=== PATIENT | female | born 1940 | race Asian ===

== ENCOUNTER 2022-06-18 16:40 | Inpatient (IN) | payer MEDICARE, OTHER ==
[~2022-06-18] VITALS: Ht 152.4 cm; Wt 45.4 kg
[2022-06-18] MEDS ORDERED: OLANZAPINE 10 MG VIAL IM ONE ×2 (17:00→17:07)
[2022-06-18 17:01] LABS: HEMATOCRIT 33.8 % (31.2-41.9); MEAN CORPUSCULAR HEMOGLOBIN 31.3 uug (24.7-32.8); MEAN CORPUSCULAR VOLUME 93.9 fL (75.5-95.3); PLATELET COUNT (AUTO) 259 K/uL (179-408)
--- NOTE | 2022-06-18 17:18 | NUR ---
PT IS IN ROOM #2B. DR VÁZQUEZ EVALUATED THE PT.
[2022-06-18] MEDS ORDERED: ACET-2154 PO (17:23)
[2022-06-18] MEDS ORDERED: NA P133E RC (17:23)
[2022-06-18] MEDS ORDERED: MAGN400O6 PO (17:23)
[2022-06-18] MEDS ORDERED: ACET-2605 PO (17:23)
[2022-06-18] MEDS ORDERED: CHOL-9 PO (17:23)
[2022-06-18] MEDS ORDERED: BISA10SU61 RC (17:23)
[2022-06-18] MEDS ORDERED: ASCO500P18 PO (17:23)
[2022-06-18 17:31] LABS: ALANINE AMINOTRANSFERASE 15 U/L (14-59); ALKALINE PHOSPHATASE 84 U/L (50-136); ASPARTATE AMINOTRANSFERASE 10 U/L (15-37); BILIRUBIN,DIRECT 0.1 mg/dL (0.0-0.2); BILIRUBIN,TOTAL 0.4 mg/dL (0.2-1.0); CARBON DIOXIDE 25 mmol/L (21-32); CHLORIDE 104 mmol/L (98-107); CREATININE 0.7 mg/dL (0.6-1.3); GLUCOSE 131 mg/dL (74-106); POTASSIUM 3.8 mmol/L (3.5-5.1); TOTAL PROTEIN, SERUM 7.2 g/dL (6.4-8.2); UREA NITROGEN, BLOOD 28 mg/dL (7-18)
[2022-06-18 17:35] LABS: ETHANOL < 3 MG/DL (0-0)
[2022-06-18 17:39] LABS: ACETAMINOPHEN < 2.0 ug/mL (10-30); THYROID STIMULATING HORMONE 1.336 mIU/mL (0.358-3.740)
[2022-06-18 17:58] LABS: *AMPHETAMINE, URINE NEGATIVE (NEGATIVE); *CANNABINOID, URINE NEGATIVE (NEGATIVE); *COCCAINE, URINE NEGATIVE (NEGATIVE); *PHENCYCLIDINE SCREEN,URINE NEGATIVE (NEGATIVE)
[2022-06-18 18:03] LABS: *BILIRUBIN,URIN NEGATIVE (NEGATIVE); *CLARITY,URINE CLEAR (CLEAR); *COLOR,URINE YELLOW (YELLOW); *KETONES,URINE NEGATIVE (NEGATIVE); *UROBILINOGEN,URINE 0.2 E.U./dl (NORMAL); LEUKOCYTE ESTERASE ,URINE NEGATIVE (NEGATIVE); NITRITE, URINE NEGATIVE (NEGATIVE); PH,URINE 5.5 (5.0-8.0); UGLUCOSE NEGATIVE (NEGATIVE)
[2022-06-18 18:19] LABS: *BLOOD, URINE TRACE (NEGATIVE)
[2022-06-18] MEDS ORDERED: diphenhydrAMINE 50 MG/1 ML VIAL IM ONE (18:45)
[2022-06-18] MEDS ORDERED: HALOPERIDOL LACTATE 5 MG/1 ML VIAL IM ONE (18:45)
[2022-06-18] MEDS ORDERED: diphenhydrAMINE 50 MG/1 ML VIAL ONE (18:50)
[2022-06-18] MEDS ORDERED: HALOPERIDOL LACTATE 5 MG/1 ML VIAL ONE (18:51)
[2022-06-18 19:09] LABS: RBC,URINE 0-3 /HPF (0-3); WBC,URINE 0-3 /HPF (0-3)
--- NOTE | 2022-06-18 20:55 | NUR ---
Patient medically clear per Dr. Tafoya
--- NOTE | 2022-06-18 21:00 | NUR ---
Report given to Nallely
--- NOTE | 2022-06-18 22:01 | NUR ---
Patient taken to MHU via gurney with personal belongings. Patient in stable condition, no signs of distress. Nallely MAJANO aware of patients arrival.
[2022-06-18] MEDS ORDERED: MAG HYDROX/AL HYDROX/SIMETH 30 ML LIQUID UDC PO PRN (22:30)
[2022-06-18] MEDS ORDERED: ZOLPIDEM 5 MG TABLET PO PRN (22:30)
[2022-06-18] MEDS ORDERED: MAGNESIUM HYDROXIDE 30 ML LIQUID UDC PO PRN (22:30)
[2022-06-18 22:55] VITALS: BP 133/73
--- NOTE | 2022-06-18 23:00 | NUR ---
Admission Note: Admitted a 82 year old female from [facility]. Pt is on a 5150 hold status For GD and DTO. Up on face to face evaluation, Pt was Uncooperative with physical assessment and was resistive with the staff providing care.Pt is confused and anxious. Skin Body assessment no revealed no significant skin integrity breakdown. Pt ambulates with assistance, lower extremities weakness, unsteady gait. Pt was offered brief orientation to unit rules and policies and given a copy of patient's rights handbook. Pt belongings were accounted and contrabands removed.Pt is currently free from pain or any discomfort. Emotional support provided. Fall and safety precautions implemented.
[2022-06-19 07:56] VITALS: BP 92/54
[2022-06-19] MEDS: ACETAMINOPHEN 325 MG TABLET PO PRN (13:36)
--- NOTE | 2022-06-19 17:48 | NUR ---
patient is alert and oriented x1 to her self only, constantly try to get out of bed without assisted, bed alarm on bed in low position on fall precautions . noted patient had fever 101.9 at 4pm ,Tylenol given ,Dr. Calvin notified with new order made will continue close monitoring.
[2022-06-19 18:13] VITALS: BP 93/49
[2022-06-19] MEDS ORDERED: QUETIAPINE FUMARATE 25 MG TABLET PO SCH (21:00)
[2022-06-19] MEDS: MEMANTINE HCL 5 MG TABLET PO SCH (21:04)
[2022-06-19] MEDS: DONEPEZIL 5 MG TABLET PO SCH (21:04)
[2022-06-19 21:24] VITALS: BP 95/51
[2022-06-20] MEDS: ACETAMINOPHEN 325 MG TABLET PO PRN ×3 (01:51→18:12)
[2022-06-20] MEDS: MEMANTINE HCL 5 MG TABLET PO SCH ×2 (08:26→20:39)
[2022-06-20] MEDS: ESCITALOPRAM OXALATE 10 MG TABLET PO SCH (08:27)
[2022-06-20 08:31] VITALS: BP 93/52
[2022-06-20 16:31] VITALS: BP 100/56
--- NOTE | 2022-06-20 17:45 | NUR ---
Gps/Class C Driver- Poor safety awareness, kept getting out of bed, w/ unsteady gait, speaks Yakut, safety reviewed emphasized, difficulty following directions, possible language barrier, able to say simple Salvadorean . Kept patient oob in her iglesia-chair , by the Nurses station for safety, wabbles when ambulating impulsivity with her mobility , monitored needs.
[2022-06-20] MEDS: LORAZEPAM 1 MG TABLET PO PRN (18:13)
--- NOTE | 2022-06-20 20:20 | NUR ---
PATIENT IN CATERINA CHAIR, RESTLESS, MULTIPLE EPISODE OF CLIMBING OUT OF CATERINA CHAIR, PATIENT UNSTEADY GAIT RISK FOR FALL AND INJURY, PLACE IN FRONT OF STATION. OFFERED FOOD AND WATER, CONT TO MONITOR.
[2022-06-20 20:27] VITALS: BP 92/46
[2022-06-20] MEDS: DONEPEZIL 5 MG TABLET PO SCH (20:39)
[2022-06-20] MEDS: QUETIAPINE FUMARATE 25 MG TABLET PO SCH (20:39)
--- NOTE | 2022-06-20 22:00 | NUR ---
PATIENT ASSISTED BACK TO BED, BUT KEEPS CLIMBING OUT OF BED, BED ALARM ON, TOOK PATIENT TO TOILET, GAVE WATER, OFFER FOOD BY REFUSED, PATIENT TALKING TO SELF, APPEARS RESPONDING TO STIMULI, PATIENT COOPERATIVE WITH ROUTINE MEDICATIONS, REFUSED TO TAKE ANY OTHER PRN MEDS, FREQUENT VISUAL CHECK DONE. NO COMPLAIN OF PAIN OR DISCOMFORT, KEPT CLEAN AND DRY. CONT TO MONITOR.
--- NOTE | 2022-06-21 06:30 | NUR ---
PATIENT WAS IN THE CATERINA CHAIR ASLEEP AFTER NICE SHOWER, THEN FOUND IN THE FLOOR. THE BAND RIPSAW OPERATOR REPORTED THAT PATIENT IN THE FLOOR SEATING POSITION, ASSISTED BACK TO CATERINA CHAIR, BODY CHECK WAS DONE, ABLE TO MOVE ALL FOUR EXTREMITIES, YELLING AT STAFF REFUSED TO BE ASSISTED BACK TO CATERINA CHAIR. PATIENT ALERT AWAKE, VERBALLY RESPONSIVE, NO APPARENT SIGN OF VISIBLE INJURY CONT TO MONITOR.
[2022-06-21 08:02] VITALS: BP 120/56
--- NOTE | 2022-06-21 08:23 | NUR ---
PLACE A CALL TO [facility] (SON), THE CALL WENT ON VOICE MAIL, UNABLE TO LEAVE A MESSAGE, THE MAIL BOX DOES NOT ACCEPT MESSAGES, ENDORSE TO OSMEL MAJANO,. DR ROBERTS MAKING ROUND AND NOTIFY ABOUT THE FALL, AND THE BEHAVIOR.
--- NOTE | 2022-06-21 08:31 | NUR ---
DR ROBERTS HAS NO FURTHER ORDER.
--- NOTE | 2022-06-21 08:37 | NUR ---
ENDORSE TO AM RN TO NOTIFY MD ABOUT THE FALL WHEN MD MAKE ROUNDS.
[2022-06-21] MEDS: MEMANTINE HCL 5 MG TABLET PO SCH ×2 (08:56→21:42)
[2022-06-21] MEDS: ESCITALOPRAM OXALATE 10 MG TABLET PO SCH (08:56)
[2022-06-21] MEDS: LORAZEPAM 1 MG TABLET PO PRN ×2 (08:56→21:44)
--- NOTE | 2022-06-21 09:08 | NUR ---
Firearms Report: [employer] completed and submitted a [employer] firearms report for 5150 grave disability certifications. A copy of report has been placed in patient chart.
[2022-06-21] MEDS: ACETAMINOPHEN 325 MG TABLET PO PRN ×2 (09:16→23:14)
--- NOTE | 2022-06-21 14:44 | NUR ---
GPS: Nursing Notes: Destructive Behavior To Others: Patient is awake and responding to her name, loud and pressured speech, resistant with nursing care, episodes of trying to slide down the iglesai chair, unsteady and weak gait, ambulatory with assistance, A/Ox2, poor anger management, loud and pressured speech, redirected and reoriented during shift, continue to monitor for safety, unable to formulate a viable plan for self care, continue to monitor for safety, continue with treatment plan.
--- NOTE | 2022-06-21 16:13 | NUR ---
ZACH Initial Discharge Note: Pt currently resides at [facility] located at [address] [place] [address] . ZACH will located contact information for the pt's sons and to discuss discharge plan. ZACH will continue to work with pt, family, MD, and [facility] to ensure a safe and proper discharge plan.
[2022-06-21 16:33] VITALS: BP 92/53
[2022-06-21 19:55] VITALS: BP 106/55
[2022-06-21] MEDS ORDERED: MIRTAZAPINE 15 MG TABLET PO SCH (21:00)
[2022-06-21] MEDS: DONEPEZIL 5 MG TABLET PO SCH (21:42)
[2022-06-21] MEDS: QUETIAPINE FUMARATE 25 MG TABLET PO SCH (21:42)
--- NOTE | 2022-06-22 03:39 | NUR ---
Received the patient in bed. This magnetic tape typewriter operator assisted the patient with oral fluids and fed the patient applesauce. The patient had a BM, and when providing radha care, the patient was warm to the touch. Temperature was checked and 101.0. Cooling measure implemented and Tylenol given. After 45 minutes, the temperature was 99.0. Again oral fluids were encouraged. Safety Stratiges are in place and continuing to monitor this patient closely. The patient is sleeping at this time. No aggressive behavior noted.
--- NOTE | 2022-06-22 05:43 | NUR ---
Patients temp is 98. 4. at this time. Will endorse to next shirt. Oral fluids provided. Sleep hours are 7.15
[2022-06-22 08:00] VITALS: BP 121/62
[2022-06-22] MEDS: MEMANTINE HCL 5 MG TABLET PO SCH (08:09)
[2022-06-22] MEDS: ACETAMINOPHEN 325 MG TABLET PO PRN (08:09)
--- NOTE | 2022-06-22 08:09 | NUR ---
GPS: Nursing Notes: Increase Temperature: Given Tylenol due to temp = 102, Pulse ox = 88%, Dimitrios Tucker, KAREN called due to patient condition, but responding to verbal commands, continue to monitor patient, Dr. Grimm informed and ordered COVID 19 test stat, continue with treatment plan.
--- NOTE | 2022-06-22 08:22 | NUR ---
GPS: Nursing Notes: KAREN Tucker Called Back: Dimitrios Tucker NP called back, staff informed him of patient condition, KAREN Tucker ordered:CBC, BMP, procalcitonin, and PCXR STAT, continue to monitor patient for safety, continue with treatment plan.
[2022-06-22 08:56] LABS: HEMATOCRIT 32.8 % (31.2-41.9); MEAN CORPUSCULAR HEMOGLOBIN 31.2 uug (24.7-32.8); MEAN CORPUSCULAR VOLUME 93.2 fL (75.5-95.3); PLATELET COUNT (AUTO) 239 K/uL (179-408)
[2022-06-22 08:59] LABS: CREATININE 1.1 mg/dL (0.6-1.3); POTASSIUM 3.6 mmol/L (3.5-5.1)
[2022-06-22 09:17] LABS: BILIRUBIN,DIRECT 0.4 mg/dL (0.0-0.2); BILIRUBIN,TOTAL 1.5 mg/dL (0.2-1.0); TOTAL PROTEIN, SERUM 7.3 g/dL (6.4-8.2)
--- NOTE | 2022-06-22 09:20 | NUR ---
GPS: Nursing Notes: KAREN Tucker Call Back Again: Dimitrios Tucker NP called back again and ordered to discharge patient to Telemetry unit with Dx: Pneumonia, Dr. will informed and discontinue 5250 to discharge patient to telemetry, continue with discharge planning.
--- NOTE | 2022-06-22 09:47 | NUR ---
ZACH Discharge Screener: ZACH completed a discharge screener.
[2022-06-22 10:32] VITALS: BP 90/53
--- NOTE | 2022-06-22 12:20 | NUR ---
GPS: Nursing Notes: Discharge Notes: Patient is awake and responding to her name, compliant with her medications, denies SI/HI, denies AH/VH, denies discomfort or pain at this time, discharge to Med. Surg. Room # 310 Telemetry under the care of Dimitrios Tucker, CLAY MACHINE OPERATOR: Dx: Pneumonia, Dr. Grimm discontinue 5250, V/S: 90/53, 98.7, 96, 89%, 18, 0/10, report and copy of chart given to admitting nurse - Macy, charge nurse, escorted patient on iglesia chair and staff to Telemetry room # 310.
[2022-06-22] MEDS ORDERED: QUET25TA PO (14:53)
[2022-06-22] MEDS ORDERED: ZOLP5TAB2 PO (14:53)
[2022-06-22] MEDS ORDERED: LORA-259 PO (14:53)
[2022-06-22] MEDS ORDERED: DONE5TAB7 PO (14:53)
[2022-06-22] MEDS ORDERED: MIRT-121 PO (14:53)
[2022-06-22] MEDS ORDERED: MEMA10TA PO (14:53)
[2022-06-22 22:39] LABS: BAND % (MANUAL) 3 % (0-10); LYMPHOCYTES % (MANUAL) 10 % (20-40); MONOCYTES % (MANUAL) 1 % (2-10); NEUTROPHILS % (MANUAL) 86 % (42-75)
== END 2022-06-22 12:00 | disposition short-term general hospital (02) | DRG 885 ==
LOC: ER 16:40 → GPS 21:29
PROVIDERS: ADMIT Psychiatry & Neurology Psychiatry; ATTEND Internal Medicine
DX: F29 Unspecified psychosis not due to a substance or known physiological condition (principal); N17.0 Acute kidney failure with tubular necrosis; F03.A18 Unspecified dementia, mild, with other behavioral disturbance; D68.69 Other thrombophilia; F03.94 Unspecified dementia, unspecified severity, with anxiety; E78.5 Hyperlipidemia, unspecified; E86.0 Dehydration; I25.5 Ischemic cardiomyopathy; K21.9 Gastro-esophageal reflux disease without esophagitis; R13.10 Dysphagia, unspecified; Z20.822 Contact with and (suspected) exposure to COVID-19; Z86.16 Personal history of COVID-19; Z86.73 Personal history of transient ischemic attack (TIA), and cerebral infarction without residual deficits; N13.9 Obstructive and reflux uropathy, unspecified; I10 Essential (primary) hypertension; I25.2 Old myocardial infarction; Z74.09 Other reduced mobility; I25.10 Atherosclerotic heart disease of native coronary artery without angina pectoris; F41.9 Anxiety disorder, unspecified; F39 Unspecified mood [affective] disorder; D64.9 Anemia, unspecified
CPT/HCPCS: 36415; 70030-TC; 70450; 71045; 83605; 84443; 85025; 87040; 93005; A4663; C1758; G0480; J1200; J1630; J2358

== ENCOUNTER 2022-06-22 12:48 | Inpatient (IN) | payer MEDICARE, OTHER ==
[~2022-06-22] VITALS: Ht 152.4 cm; Wt 45.4 kg
[~2022-06-22 12:48] MED LIST: ACET-2154 PO; ACET-2605 PO; ASCO500P18 PO; BISA10SU61 RC; CHOL-9 PO; MAGN400O6 PO; NA P133E RC
[2022-06-22 12:50] VITALS: BP 103/60
--- NOTE | 2022-06-22 12:50 | NUR ---
received from MHU per iglesia chair, pt slightly opens eyes when name is called and touched, lethargic, vs taken , placed on 2L/nc and tele applied- SR 90's, IV started on right forearm, initial assessment done, informed Dr Tam of VS and orders given and carried out, kept comfortable and safety measures initiated
[2022-06-22] MEDS ORDERED: FLEET ENEMA 133 ML BOTTLE RC PRN (13:15)
[2022-06-22] MEDS: IV NS 1000 ML 1,000 ML IV PRN ×2 (13:15→23:17)
[2022-06-22] MEDS ORDERED: MAGNESIUM HYDROXIDE 30 ML LIQUID UDC PO PRN (13:15)
[2022-06-22] MEDS ORDERED: BISACODYL 10 MG SUPP.RECT RC PRN (13:15)
[2022-06-22] MEDS ORDERED: REMEDY ESSENTIAL ZINC PASTE 113 GM TP PRN (13:15)
[2022-06-22] MEDS ORDERED: ONDANSETRON 4 MG/2 ML VIAL IV PRN (13:15)
[2022-06-22] MEDS ORDERED: AZITHROMYCIN IV 500 MG in IV DEXTROSE 5% 250 ML IV SCH (14:00)
[2022-06-22] MEDS ORDERED: QUET25TA PO (14:53)
[2022-06-22] MEDS ORDERED: MIRT-121 PO (14:53)
[2022-06-22] MEDS ORDERED: DONE5TAB7 PO (14:53)
[2022-06-22] MEDS ORDERED: ZOLP5TAB2 PO (14:53)
[2022-06-22] MEDS ORDERED: LORA-259 PO (14:53)
[2022-06-22] MEDS ORDERED: MEMA10TA PO (14:53)
[2022-06-22] MEDS: CEFTRIAXONE 1 G in IV DEXTROSE 5% 50 ML IV SCH (15:11)
[2022-06-22 15:30] VITALS: BP 105/62
[2022-06-22 15:53] VITALS: BP 99/61
[2022-06-22 16:35] VITALS: BP 111/56
--- NOTE | 2022-06-22 16:35 | NUR ---
more alert, opens eyes spontaneously, repositioned and kept comfortable.
[2022-06-22] MEDS ORDERED: ACETAMINOPHEN 650 MG SUPP.RECT RC PRN (16:45)
[2022-06-22] MEDS ORDERED: Medication Not On Formulary EA (Ascorbic Acid (Vitamin C) 500 MG) PO SCH (17:00)
--- NOTE | 2022-06-22 17:39 | NUR ---
awake, restless and trying to get out of bed, repositioned and states wants to go to BR, placed on bedpan
[2022-06-22] MEDS: ASCORBIC ACID 500 MG TABLET PO SCH (17:44)
--- NOTE | 2022-06-22 18:30 | NUR ---
fed with dinner but ate very little, took med with apple sauce, able to answer simple questions in Kazakh, repositioned and made comfortable, safety measures in place, bed alarm on, still confused but able to follow simple commands, tele SR/ST low 100's. all needs attended and met, call light within reach
[2022-06-22 20:00] VITALS: BP 116/59
--- NOTE | 2022-06-22 20:09 | NUR ---
pt is febrile at 103; tylenol supp given RI by MELECIO Larson; cooling measures done; will observe closely.
[2022-06-22] MEDS: ENOXAPARIN SODIUM 40 MG/0.4 ML DISP.SYRIN SQ SCH (20:22)
[2022-06-22] MEDS: ZOLPIDEM 5 MG TABLET PO PRN ×2 (20:36→20:41)
[2022-06-22] MEDS: LORAZEPAM 2 MG/1 ML VIAL IV PRN (22:03)
[2022-06-23] VITALS: BP 109/64
[2022-06-23] MEDS: LORAZEPAM 2 MG/1 ML VIAL IV PRN ×2 (03:49→22:35)
[2022-06-23 04:14] VITALS: BP 106/55
[2022-06-23] MEDS: IV NS 1000 ML 1,000 ML IV PRN ×3 (06:08→21:00)
[2022-06-23] MEDS: PANTOPRAZOLE SODIUM 40 MG TABLET.DR PO SCH (06:08)
--- NOTE | 2022-06-23 07:03 | NUR ---
Pt rested well in between care; occasional screaming, referred to Dr Tam last night with an order or ativan IV; pt given cooling measures; afebrile this AM; continue to monitor; continue plan of care
[2022-06-23 07:07] LABS: HEMATOCRIT 31.5 % (31.2-41.9); MEAN CORPUSCULAR HEMOGLOBIN 30.7 uug (24.7-32.8); MEAN CORPUSCULAR VOLUME 95.2 fL (75.5-95.3); PLATELET COUNT (AUTO) 238 K/uL (179-408)
[2022-06-23 07:29] LABS: MAGNESIUM 3.1 mg/dL (1.8-2.4); PHOSPHOROUS 3.9 mg/dL (2.5-4.9); POTASSIUM 3.7 mmol/L (3.5-5.1)
--- NOTE | 2022-06-23 08:00 | NUR ---
AWAKE ALERT AND VERBALLY RESPONSIVE, NO SS OF PAIN OR RESPIRATORY DISTRESS. ON 4LVIA NC SATURATING 96%. NO SS OF DISTRESS. SR ON MONITOR
[2022-06-23] MEDS: CHOLECALCIFEROL 1,000 UNIT TABLET PO SCH (08:33)
[2022-06-23] MEDS: ASCORBIC ACID 500 MG TABLET PO SCH ×2 (08:34→16:09)
[2022-06-23] MEDS ORDERED: Medication Not On Formulary EA (Cholecalciferol (Vitamin D3) (Vitamin D3) 1,000 UNITS) PO SCH (09:00)
[2022-06-23] MEDS: QUETIAPINE FUMARATE 25 MG TABLET PO SCH ×2 (11:21→16:08)
[2022-06-23 12:00] VITALS: BP 98/53
--- NOTE | 2022-06-23 12:00 | NUR ---
NO ACUTE CHANGE FROM MORNING ASSESSMENT. CLOSELY MONITORED
[2022-06-23] MEDS: DOXYCYCLINE HYCLATE IV 100 MG in IV DEXTROSE 5% 100 ML IV SCH (13:03)
[2022-06-23] MEDS: CEFTRIAXONE 1 G in IV DEXTROSE 5% 50 ML IV SCH (14:43)
--- NOTE | 2022-06-23 15:54 | NUR ---
PATIENT REMAINS AFEBRILE, MORE COOPERATIVE AND ABLE TO FOLLOW SIMPLE COMMAND. ABLE TO EAT WITH NO SS OF ASPIRATION. REQUIRES TOTAL ASSIST IN EATING. SR ON MONITOR
[2022-06-23 16:00] VITALS: BP 109/61
--- NOTE | 2022-06-23 18:42 | NUR ---
WRIST RESTRAINT RE-APPLIED FOR TENDENCY OF PULLING TUBES NAD GETTING OUT OF BED. KEPT COMFORTABLE
[2022-06-23 20:00] VITALS: BP 112/56
[2022-06-23] MEDS: MIRTAZAPINE 15 MG TABLET PO SCH (20:09)
[2022-06-23] MEDS: MEMANTINE HCL 5 MG TABLET PO SCH (20:09)
[2022-06-23] MEDS: ENOXAPARIN SODIUM 40 MG/0.4 ML DISP.SYRIN SQ SCH (20:10)
[2022-06-23] MEDS: ACETAMINOPHEN 325 MG TABLET PO PRN (20:21)
[2022-06-24] VITALS: BP 110/85
[2022-06-24] MEDS: DOXYCYCLINE HYCLATE IV 100 MG in IV DEXTROSE 5% 100 ML IV SCH ×2 (02:30→14:28)
[2022-06-24] MEDS: PANTOPRAZOLE SODIUM 40 MG TABLET.DR PO SCH (06:07)
[2022-06-24] MEDS: IV NS 1000 ML 1,000 ML IV PRN (06:11)
[2022-06-24 06:18] LABS: HEMATOCRIT 32.1 % (31.2-41.9); MEAN CORPUSCULAR HEMOGLOBIN 30.9 uug (24.7-32.8); MEAN CORPUSCULAR VOLUME 94.2 fL (75.5-95.3); PLATELET COUNT (AUTO) 259 K/uL (179-408)
[2022-06-24 07:15] LABS: CARBON DIOXIDE 22 mmol/L (21-32); CHLORIDE 117 mmol/L (98-107); CREATININE 0.8 mg/dL (0.6-1.3); GLUCOSE 117 mg/dL (74-106); MAGNESIUM 2.5 mg/dL (1.8-2.4); PHOSPHOROUS 2.3 mg/dL (2.5-4.9); POTASSIUM 2.9 mmol/L (3.5-5.1); UREA NITROGEN, BLOOD 27 mg/dL (7-18)
[2022-06-24] MEDS ORDERED: IV D5 1/2 NS 1000 ML 1,000 ML IV ONE (07:15)
--- NOTE | 2022-06-24 08:00 | NUR ---
Received pt. lying in bed, awake, alert. ongoing IVF changed to D5 1/2 NS @ 75cc/hr infusing well at right forearm. Pt. with O2 inhalation at 2lpm via nasal canula saturating at 97-99%. Not in distress, with soft wrist restraint due to pulling out of IV. Closely monitored.
[2022-06-24] MEDS: ASCORBIC ACID 500 MG TABLET PO SCH ×2 (08:06→17:04)
[2022-06-24] MEDS: CHOLECALCIFEROL 1,000 UNIT TABLET PO SCH (08:06)
[2022-06-24] MEDS: POTASSIUM CHLORIDE 50 ML IV SCH ×4 (08:06→11:55)
[2022-06-24] MEDS: MEMANTINE HCL 5 MG TABLET PO SCH ×2 (08:07→20:17)
[2022-06-24] MEDS: QUETIAPINE FUMARATE 25 MG TABLET PO SCH ×2 (08:07→17:04)
[2022-06-24 11:36] VITALS: BP 139/67
--- NOTE | 2022-06-24 12:00 | NUR ---
Medications given and recorded. Tolerated oral food. Observed pt. accordingly. Wrist restraint check from time to time, removed when patient is asleep. Morning care done, change diaper, gown and linen. Needs attended
[2022-06-24] MEDS: ENSURE ENLIVE (VAN) 240 ML LIQUID PO SCH ×2 (14:28→17:04)
[2022-06-24] MEDS: MEGESTROL ACETATE 400 MG/10 ML LIQUID UDC PO SCH ×2 (14:29→20:17)
--- NOTE | 2022-06-24 15:00 | NUR ---
Seen patient comfortably sleeping in bed, IV medications given as ordered. Continue care plan
[2022-06-24 15:42] VITALS: BP 141/76
[2022-06-24] MEDS: CEFTRIAXONE 1 G in IV DEXTROSE 5% 50 ML IV SCH (15:49)
[2022-06-24] MEDS ORDERED: NEUTRA PHOS PACKET PO ONE (17:00)
[2022-06-24] MEDS: ACETAMINOPHEN 325 MG TABLET PO PRN (17:14)
--- NOTE | 2022-06-24 19:45 | NUR ---
patient in bed sleeping .no s/s of pain breathing even and unlabored .easily arousable alert x1 otherwise confused with bilateral upper extremities wrist restraints .
[2022-06-24 20:00] VITALS: BP 93/61
[2022-06-24] MEDS: MIRTAZAPINE 15 MG TABLET PO SCH (20:17)
[2022-06-24] MEDS: ENOXAPARIN SODIUM 40 MG/0.4 ML DISP.SYRIN SQ SCH (20:18)
[2022-06-24] MEDS: ZOLPIDEM 5 MG TABLET PO PRN (23:52)
[2022-06-25] VITALS: BP 148/73
[2022-06-25] MEDS: LORAZEPAM 2 MG/1 ML VIAL IV PRN (00:45)
[2022-06-25] MEDS: DOXYCYCLINE HYCLATE IV 100 MG in IV DEXTROSE 5% 100 ML IV SCH ×2 (01:15→14:59)
[2022-06-25 04:00] VITALS: BP 145/78
[2022-06-25] MEDS: PANTOPRAZOLE SODIUM 40 MG TABLET.DR PO SCH (06:30)
[2022-06-25 06:41] LABS: HEMATOCRIT 33.3 % (31.2-41.9); MEAN CORPUSCULAR HEMOGLOBIN 30.8 uug (24.7-32.8); MEAN CORPUSCULAR VOLUME 93.5 fL (75.5-95.3); PLATELET COUNT (AUTO) 292 K/uL (179-408)
[2022-06-25 07:00] LABS: CREATININE 0.7 mg/dL (0.6-1.3); MAGNESIUM 2.2 mg/dL (1.8-2.4); PHOSPHOROUS 3.1 mg/dL (2.5-4.9); POTASSIUM 3.2 mmol/L (3.5-5.1)
[2022-06-25] MEDS: POTASSIUM CHLORIDE 50 ML IV SCH ×4 (07:53→11:54)
[2022-06-25] MEDS ORDERED: POTASSIUM CHLORIDE 50 ML IV SCH (08:30)
[2022-06-25] MEDS: QUETIAPINE FUMARATE 25 MG TABLET PO SCH ×2 (08:46→17:00)
[2022-06-25] MEDS: CHOLECALCIFEROL 1,000 UNIT TABLET PO SCH (08:46)
[2022-06-25] MEDS: MEGESTROL ACETATE 400 MG/10 ML LIQUID UDC PO SCH ×3 (08:46→21:00)
[2022-06-25] MEDS: MEMANTINE HCL 5 MG TABLET PO SCH ×2 (08:46→21:00)
[2022-06-25] MEDS: ASCORBIC ACID 500 MG TABLET PO SCH ×2 (08:47→17:00)
[2022-06-25] MEDS: ENSURE ENLIVE (VAN) 240 ML LIQUID PO SCH ×3 (08:47→17:00)
[2022-06-25] MEDS: POTASSIUM CHLORIDE 20 MEQ in IV D5W 1000ML 1,000 ML IV SCH (09:20)
[2022-06-25 11:12] VITALS: BP 157/95
[2022-06-25 15:06] VITALS: BP 149/74
[2022-06-25] MEDS: CEFTRIAXONE 1 G in IV DEXTROSE 5% 50 ML IV SCH (15:58)
[2022-06-25 20:06] VITALS: BP 122/72
[2022-06-25] MEDS: ENOXAPARIN SODIUM 40 MG/0.4 ML DISP.SYRIN SQ SCH (20:45)
[2022-06-25] MEDS: MIRTAZAPINE 15 MG TABLET PO SCH (21:00)
--- NOTE | 2022-06-25 21:30 | NUR ---
bladder scanned pt 1500cc noted, f/c insertes obtained 1850cc
[2022-06-26 00:02] VITALS: BP 97/60
[2022-06-26] MEDS: DOXYCYCLINE HYCLATE IV 100 MG in IV DEXTROSE 5% 100 ML IV SCH ×2 (01:19→13:42)
[2022-06-26] MEDS: POTASSIUM CHLORIDE 20 MEQ in IV D5W 1000ML 1,000 ML IV SCH ×2 (01:32→14:14)
[2022-06-26 04:06] VITALS: BP 108/56
[2022-06-26] MEDS: PANTOPRAZOLE SODIUM 40 MG TABLET.DR PO SCH (06:04)
--- NOTE | 2022-06-26 07:14 | NUR ---
REPORT GIVEN TO MELECIO CARDENAS
[2022-06-26 07:21] LABS: CARBON DIOXIDE 28 mmol/L (21-32); CHLORIDE 112 mmol/L (98-107); CREATININE 0.7 mg/dL (0.6-1.3); GLUCOSE 113 mg/dL (74-106); MAGNESIUM 1.8 mg/dL (1.8-2.4); PHOSPHOROUS 2.9 mg/dL (2.5-4.9); POTASSIUM 3.4 mmol/L (3.5-5.1); UREA NITROGEN, BLOOD 21 mg/dL (7-18)
[2022-06-26 07:29] LABS: HEMATOCRIT 32.2 % (31.2-41.9); MEAN CORPUSCULAR HEMOGLOBIN 31.1 uug (24.7-32.8); MEAN CORPUSCULAR VOLUME 93.8 fL (75.5-95.3); PLATELET COUNT (AUTO) 309 K/uL (179-408)
--- NOTE | 2022-06-26 08:00 | NUR ---
AWAKE ALERT AND VERBALLY RESPONSIVE BUT CONFUSED X3. NO SS OF ACUTE PAIN OR RESPIRATORY DISTRESS. ON 2L NC SATURATING 96%. SR ON MONITOR. CONTINUE WITH IVF AND IV ANTIBIOTICS
[2022-06-26] MEDS: MEGESTROL ACETATE 400 MG/10 ML LIQUID UDC PO SCH ×2 (08:32→20:34)
[2022-06-26] MEDS: CHOLECALCIFEROL 1,000 UNIT TABLET PO SCH (08:33)
[2022-06-26] MEDS: ASCORBIC ACID 500 MG TABLET PO SCH ×2 (08:33→17:06)
[2022-06-26] MEDS: QUETIAPINE FUMARATE 25 MG TABLET PO SCH ×2 (08:33→17:06)
[2022-06-26] MEDS: MEMANTINE HCL 5 MG TABLET PO SCH ×2 (08:33→20:34)
[2022-06-26] MEDS: ENSURE ENLIVE (VAN) 240 ML LIQUID PO SCH ×3 (08:34→17:06)
--- NOTE | 2022-06-26 10:52 | NUR ---
SEEN BY DRUPAL ARCHITECT STATUS CHANGED TO MEDSURG. SEE NOTES
[2022-06-26 12:00] VITALS: BP 93/52
[2022-06-26] MEDS ORDERED: POTASSIUM CHLORIDE 20 MEQ TAB.PRT.SR PO ONE (13:00)
[2022-06-26] MEDS: CEFTRIAXONE 1 G in IV DEXTROSE 5% 50 ML IV SCH (14:07)
--- NOTE | 2022-06-26 15:00 | NUR ---
SEEN BY DR ESPINO FOR FOLLOW-UP PLAN DISCHARGE IN AM IF STABLE. SEE NOTES
[2022-06-26 15:09] LABS: *BILIRUBIN,URIN NEGATIVE (NEGATIVE); *BLOOD, URINE NEGATIVE (NEGATIVE); *CLARITY,URINE CLEAR (CLEAR); *COLOR,URINE YELLOW (YELLOW); *KETONES,URINE NEGATIVE (NEGATIVE); *UROBILINOGEN,URINE 0.2 E.U./dl (NORMAL); LEUKOCYTE ESTERASE ,URINE NEGATIVE (NEGATIVE); NITRITE, URINE NEGATIVE (NEGATIVE); UGLUCOSE NEGATIVE (NEGATIVE)
[2022-06-26 15:18] LABS: BACTERIA,URINE FEW /HPF (NONE SEEN)
[2022-06-26 15:19] LABS: SQUAMOUS EPITHELIAL CELL,UR FEW /HPF (NONE SEEN)
[2022-06-26 16:00] VITALS: BP 92/52
--- NOTE | 2022-06-26 18:21 | NUR ---
PATIENT REMAINS A FEEDER APPETITE FARE. COOPERATIVE DURING CARE. CONTINUE CURRENT PLAN OF CARE.
[2022-06-26 20:00] VITALS: BP 94/51
[2022-06-26] MEDS: MIRTAZAPINE 15 MG TABLET PO SCH (20:34)
[2022-06-26] MEDS: ENOXAPARIN SODIUM 40 MG/0.4 ML DISP.SYRIN SQ SCH (20:36)
[2022-06-27] MEDS: POTASSIUM CHLORIDE 20 MEQ in IV D5W 1000ML 1,000 ML IV SCH (01:47)
[2022-06-27] MEDS: DOXYCYCLINE HYCLATE IV 100 MG in IV DEXTROSE 5% 100 ML IV SCH ×2 (03:27→12:33)
[2022-06-27 05:00] VITALS: BP 116/63
[2022-06-27] MEDS: PANTOPRAZOLE SODIUM 40 MG TABLET.DR PO SCH (05:47)
[2022-06-27] MEDS: ACETAMINOPHEN 325 MG TABLET PO PRN (05:47)
[2022-06-27 06:46] LABS: MEAN CORPUSCULAR HEMOGLOBIN 31.1 uug (24.7-32.8); MEAN CORPUSCULAR VOLUME 93.6 fL (75.5-95.3); PLATELET COUNT (AUTO) 315 K/uL (179-408)
[2022-06-27 07:12] LABS: CREATININE 0.6 mg/dL (0.6-1.3); MAGNESIUM 1.5 mg/dL (1.8-2.4); PHOSPHOROUS 3.3 mg/dL (2.5-4.9); POTASSIUM 3.8 mmol/L (3.5-5.1)
--- NOTE | 2022-06-27 07:57 | NUR ---
Patient is AAOX3, no adverse effects observed. IV site is patent, dry, no rash; no redness. No respiratory distress observed. She is compliant with med. She interact very well with staff. She denies SI/HI, she is now resting in her room. Will continue to monitor patient for safety.
--- NOTE | 2022-06-27 08:00 | NUR ---
PATIENT REMAINS COOPERATIVE ABLE TO FEED SELF WITH VERY MINIMAL ASSIST. DENIES PAIN OR SS OF RESPIRATORY DISTRESS. CONTINUE ON 2L NC [id number] 95%
[2022-06-27] MEDS: CHOLECALCIFEROL 1,000 UNIT TABLET PO SCH (08:32)
[2022-06-27] MEDS: MEMANTINE HCL 5 MG TABLET PO SCH ×2 (08:32→20:39)
[2022-06-27] MEDS: QUETIAPINE FUMARATE 25 MG TABLET PO SCH ×2 (08:32→17:27)
[2022-06-27] MEDS: MEGESTROL ACETATE 400 MG/10 ML LIQUID UDC PO SCH ×2 (08:33→20:39)
[2022-06-27] MEDS: ENSURE ENLIVE (VAN) 240 ML LIQUID PO SCH ×3 (08:34→17:27)
[2022-06-27] MEDS: ASCORBIC ACID 500 MG TABLET PO SCH ×2 (08:34→17:27)
[2022-06-27 11:40] VITALS: BP_SYST 81; BP_SYST 91; BP_DIAS 41; BP_DIAS 47
[2022-06-27] MEDS: MAGNESIUM SULFATE/D5W 100 ML IV SCH ×2 (14:12→15:56)
[2022-06-27 15:54] VITALS: BP 87/47
--- NOTE | 2022-06-27 16:00 | NUR ---
DR ESPINO MADE AWARE OF LOW BP WILL START ON NS 125 MLS/HR. PLAN DC IN AM IF STABLE
[2022-06-27] MEDS: IV NS 1000 ML 1,000 ML IV PRN (16:12)
[2022-06-27] MEDS: CEFTRIAXONE 1 G in IV DEXTROSE 5% 50 ML IV SCH (16:13)
[2022-06-27 20:00] VITALS: BP 97/52
[2022-06-27] MEDS: MIRTAZAPINE 15 MG TABLET PO SCH (20:39)
[2022-06-27] MEDS: ENOXAPARIN SODIUM 40 MG/0.4 ML DISP.SYRIN SQ SCH (20:43)
[2022-06-28] MEDS: DOXYCYCLINE HYCLATE IV 100 MG in IV DEXTROSE 5% 100 ML IV SCH ×2 (01:51→13:07)
[2022-06-28] MEDS: IV NS 1000 ML 1,000 ML IV PRN (02:07)
[2022-06-28] MEDS: LORAZEPAM 2 MG/1 ML VIAL IV PRN ×2 (03:13→10:54)
[2022-06-28] MEDS: ACETAMINOPHEN 325 MG TABLET PO PRN (03:22)
[2022-06-28 04:00] VITALS: BP 121/58
[2022-06-28] MEDS: PANTOPRAZOLE SODIUM 40 MG TABLET.DR PO SCH (06:19)
[2022-06-28 07:03] LABS: HEMATOCRIT 27.1 % (31.2-41.9); MEAN CORPUSCULAR HEMOGLOBIN 31.2 uug (24.7-32.8); MEAN CORPUSCULAR VOLUME 93.9 fL (75.5-95.3); PLATELET COUNT (AUTO) 320 K/uL (179-408)
[2022-06-28 07:27] LABS: CREATININE 0.7 mg/dL (0.6-1.3); MAGNESIUM 1.7 mg/dL (1.8-2.4); PHOSPHOROUS 2.8 mg/dL (2.5-4.9); POTASSIUM 3.8 mmol/L (3.5-5.1)
--- NOTE | 2022-06-28 08:00 | NUR ---
Pt is in no acute distress. Fall precaution implemented. F/c Draining with clear yellow urine. Tapered o2 @r/a with sat o 96%. IV on left hand wrapped with kerlix flushing well. IVF infusing well without resistance.
--- NOTE | 2022-06-28 08:01 | NUR ---
Patient AAOX2 with some confusion. She was very agitated last night, anxiety med have been administered. She tolerated meds very well. She is now resting in her room; IV site is dry,patent; no rash and redness was observed at the IV site. She is now sleeping in her room. Will continue to monitor patient for safety.
[2022-06-28] MEDS: MEMANTINE HCL 5 MG TABLET PO SCH ×2 (08:51→20:13)
[2022-06-28] MEDS: CHOLECALCIFEROL 1,000 UNIT TABLET PO SCH (08:51)
[2022-06-28] MEDS: ASCORBIC ACID 500 MG TABLET PO SCH ×2 (08:51→16:46)
[2022-06-28] MEDS: MEGESTROL ACETATE 400 MG/10 ML LIQUID UDC PO SCH ×2 (08:51→20:14)
[2022-06-28] MEDS: QUETIAPINE FUMARATE 25 MG TABLET PO SCH ×2 (08:52→16:46)
[2022-06-28] MEDS: MIDODRINE HCL 5 MG TABLET PO SCH ×3 (08:57→20:31)
[2022-06-28] MEDS: MAGNESIUM SULFATE/D5W 100 ML IV SCH ×2 (08:59→10:31)
[2022-06-28] MEDS: ENSURE ENLIVE (VAN) 240 ML LIQUID PO SCH ×3 (09:00→16:46)
[2022-06-28 11:41] VITALS: BP 97/55
[2022-06-28] MEDS ORDERED: MIDO5TAB4 PO (14:31)
[2022-06-28] MEDS ORDERED: MEGE400O4 PO (14:31)
[2022-06-28] MEDS ORDERED: QUET25TA36 PO (14:31)
[2022-06-28] MEDS: CEFTRIAXONE 1 G in IV DEXTROSE 5% 50 ML IV SCH (15:31)
[2022-06-28 15:43] VITALS: BP 104/55
--- NOTE | 2022-06-28 18:00 | NUR ---
Report given to Lindsey on [facility]. Ambulance for filler picker @ 1830. Pt denies any c/o pain.
[2022-06-28] MEDS: MIRTAZAPINE 15 MG TABLET PO SCH (20:13)
[2022-06-28] MEDS: ENOXAPARIN SODIUM 40 MG/0.4 ML DISP.SYRIN SQ SCH (20:17)
[2022-06-28 20:35] VITALS: BP 118/59
--- NOTE | 2022-06-28 22:00 | NUR ---
Discharged to [facility] via ambulance with all the belongings and discharge papers.
== END 2022-06-28 22:00 | DRG 193 ==
LOC: MEDSURG3 12:48 → TELE3 12:59 → MEDSURG3 06-26 10:24
PROVIDERS: ADMIT Student in an Organized Health Care Education/Training Program; ATTEND Student in an Organized Health Care Education/Training Program
DX: J15.9 Unspecified bacterial pneumonia (principal); J96.01 Acute respiratory failure with hypoxia; N17.0 Acute kidney failure with tubular necrosis; F03.93 Unspecified dementia, unspecified severity, with mood disturbance; E87.0 Hyperosmolality and hypernatremia; F03.94 Unspecified dementia, unspecified severity, with anxiety; D64.9 Anemia, unspecified; E78.5 Hyperlipidemia, unspecified; E86.0 Dehydration; E87.6 Hypokalemia; R13.10 Dysphagia, unspecified; Z86.73 Personal history of transient ischemic attack (TIA), and cerebral infarction without residual deficits; I95.9 Hypotension, unspecified; F29 Unspecified psychosis not due to a substance or known physiological condition; F39 Unspecified mood [affective] disorder; Z20.822 Contact with and (suspected) exposure to COVID-19; Z91.199 Patient's noncompliance with other medical treatment and regimen due to unspecified reason
CPT/HCPCS: 36415; 83735; 84100; 85025; 93307; A4663; A6209; A6213; G0378; J0456; J0696; J1650; J2060; J3475; J3480; J3490; J7040; J7042; J7050; J7070; J8999

== ENCOUNTER 2023-03-03 09:45 | Inpatient (IN) | payer MEDICARE, OTHER ==
[~2023-03-03] VITALS: Ht 154.9 cm; Wt 44.9 kg
[~2023-03-03 09:45] MED LIST changes: +DONE5TAB7 PO; +LORA-259 PO; +MEGE400O4 PO; +MEMA10TA PO; +MIDO5TAB4 PO; +MIRT-121 PO; +QUET25TA36 PO; +ZOLP5TAB2 PO
[2023-03-03] MEDS ORDERED: LATA2.5D2 EACHEYE (10:12)
[2023-03-03 10:13] LABS: BASOPHILS % (AUTO) 0.5 % (0.0-2.0); EOSINOPHILS % (AUTO) 0.5 % (0.0-7.0); HEMATOCRIT 36.6 % (31.2-41.9); HEMOGLOBIN 12.3 g/dL (10.9-14.3); LYMPHOCYTES % (AUTO) 17.6 % (20.5-51.5); MEAN CORPUSCULAR HEMOGLOBIN 31.7 uug (24.7-32.8); MEAN CORPUSCULAR HGB CONC 34 g/dL (32.3-35.6); MEAN CORPUSCULAR VOLUME 94.9 fL (75.5-95.3); MONOCYTES # (AUTO) 0.5 K/uL (0.1-1.30); MONOCYTES % (AUTO) 8.5 % (0.0-11.0); NEUTROPHILS # (AUTO) 4.2 K/uL (1.8-8.9); NEUTROPHILS % (AUTO) 72.9 % (38.5-71.5); PLATELET COUNT (AUTO) 200 K/uL (179-408); RED BLOOD CELL COUNT(AUTO) 3.86 MIL/uL (3.63-4.92); RED CELL DISTRIBUTION WIDTH 13.8 % (12.3-17.7); WHITE BLOOD COUNT (AUTO) 5.7 K/uL (3.8-11.8)
[2023-03-03 10:14] LABS: DIFFERENTIAL COMMENT 1
[2023-03-03 10:35] LABS: THYROID STIMULATING HORMONE 0.807 mIU/mL (0.358-3.740)
[2023-03-03 10:39] LABS: ETHANOL < 3 MG/DL (0-10)
[2023-03-03 10:41] LABS: ALANINE AMINOTRANSFERASE 11 U/L (14-59); ALBUMIN 3.9 g/dL (3.4-5.0); ALKALINE PHOSPHATASE 76 U/L (50-136); ASPARTATE AMINOTRANSFERASE 13 U/L (15-37); BILIRUBIN,DIRECT 0.2 mg/dL (0.0-0.2); BILIRUBIN,TOTAL 0.7 mg/dL (0.2-1.0); CALCIUM 9.3 mg/dL (8.5-10.1); CARBON DIOXIDE 25 mmol/L (21-32); CHLORIDE 101 mmol/L (98-107); CREATININE 0.8 mg/dL (0.6-1.3); GLUCOSE 127 mg/dL (74-106); POTASSIUM 3.9 mmol/L (3.5-5.1); SODIUM SERUM 139 mmol/L (136-145); TOTAL PROTEIN, SERUM 7.4 g/dL (6.4-8.2); UREA NITROGEN, BLOOD 10 mg/dL (7-18)
[2023-03-03 11:17] LABS: *BILIRUBIN,URIN NEGATIVE (NEGATIVE); *CLARITY,URINE CLEAR (CLEAR); *COLOR,URINE YELLOW (YELLOW); *KETONES,URINE NEGATIVE (NEGATIVE); *PROTEIN,URINE NEGATIVE (NEGATIVE); *UROBILINOGEN,URINE 0.2 E.U./dl (NORMAL); LEUKOCYTE ESTERASE ,URINE 3+ (NEGATIVE); NITRITE, URINE NEGATIVE (NEGATIVE); UGLUCOSE NEGATIVE (NEGATIVE)
[2023-03-03 11:24] LABS: *BLOOD, URINE TRACE (NEGATIVE)
[2023-03-03 11:29] LABS: *AMPHETAMINE, URINE NEGATIVE (NEGATIVE); *BARBITURATE, URINE NEGATIVE (NEGATIVE); *BENZODIAZEPINE, URINE NEGATIVE (NEGATIVE); *CANNABINOID, URINE NEGATIVE (NEGATIVE); *COCCAINE, URINE NEGATIVE (NEGATIVE); *OPIATE, URINE NEGATIVE (NEGATIVE); *PHENCYCLIDINE SCREEN,URINE NEGATIVE (NEGATIVE)
[2023-03-03 11:32] LABS: FENTANYL, URINE NEGATIVE (NEGATIVE)
[2023-03-03 12:16] LABS: BACTERIA,URINE FEW /HPF (NONE SEEN); RBC,URINE 0-3 /HPF (0-3); SQUAMOUS EPITHELIAL CELL,UR FEW /HPF (NONE SEEN)
[2023-03-03] MEDS ORDERED: ZOLPIDEM 5 MG TABLET PO PRN (13:30)
[2023-03-03] MEDS ORDERED: MAG HYDROX/AL HYDROX/SIMETH 30 ML LIQUID UDC PO PRN (13:30)
[2023-03-03] MEDS ORDERED: LORAZEPAM 0.5 MG TABLET PO PRN (13:30)
[2023-03-03] MEDS ORDERED: ACETAMINOPHEN 325 MG TABLET PO PRN (13:30)
[2023-03-03] MEDS ORDERED: MAGNESIUM HYDROXIDE 30 ML LIQUID UDC PO PRN (13:30)
[2023-03-03 15:44] VITALS: BP 121/76; TEMP 99.2; O2SAT 98
[2023-03-03] MEDS: CEphaleXIN 500 MG CAPSULE PO SCH ×2 (17:12→20:20)
[2023-03-03] MEDS ORDERED: CEphaleXIN 500 MG CAPSULE PO SCH (17:15)
[2023-03-03] MEDS ORDERED: BISACODYL 10 MG SUPP.RECT RC PRN (17:15)
[2023-03-03] MEDS ORDERED: FLEET ENEMA 133 ML BOTTLE RC PRN (17:15)
[2023-03-03] MEDS: LATANOPROST OPHT DROP 2.5 ML BOTTLE EACHEYE SCH (18:00)
[2023-03-03 19:45] VITALS: BP 109/63; TEMP 97.4; O2SAT 96
[2023-03-04 07:30] VITALS: BP 123/72; TEMP 98; O2SAT 99
[2023-03-04] MEDS: CEphaleXIN 500 MG CAPSULE PO SCH ×2 (08:32→20:07)
[2023-03-04 08:35] LABS: ALANINE AMINOTRANSFERASE 11 U/L (14-59); ALBUMIN 3.3 g/dL (3.4-5.0); ALKALINE PHOSPHATASE 66 U/L (50-136); ASPARTATE AMINOTRANSFERASE 14 U/L (15-37); BILIRUBIN,TOTAL 0.7 mg/dL (0.2-1.0); CALCIUM 8.9 mg/dL (8.5-10.1); CARBON DIOXIDE 26 mmol/L (21-32); CHLORIDE 105 mmol/L (98-107); CREATININE 0.7 mg/dL (0.6-1.3); GLUCOSE 104 mg/dL (74-106); POTASSIUM 3.8 mmol/L (3.5-5.1); SODIUM SERUM 141 mmol/L (136-145); TOTAL PROTEIN, SERUM 6.5 g/dL (6.4-8.2); UREA NITROGEN, BLOOD 12 mg/dL (7-18)
[2023-03-04] MEDS ORDERED: QUETIAPINE FUMARATE 25 MG TABLET PO PRN (12:30)
[2023-03-04] MEDS: GLUCERNA SHAKE 237 ML CAN PO SCH (17:32)
[2023-03-04] MEDS: LATANOPROST OPHT DROP 2.5 ML BOTTLE EACHEYE SCH (18:00)
[2023-03-04 19:49] VITALS: BP 135/75; TEMP 98.4; O2SAT 98
[2023-03-04] MEDS: QUETIAPINE FUMARATE 25 MG TABLET PO SCH (20:07)
[2023-03-04] MEDS: ATORVASTATIN 10 MG TABLET PO SCH (20:07)
[2023-03-04] MEDS: DONEPEZIL 5 MG TABLET PO SCH (20:07)
[2023-03-04] MEDS: MEMANTINE HCL 5 MG TABLET PO SCH (20:07)
[2023-03-05 07:38] VITALS: BP 121/63; TEMP 98.3; O2SAT 100
[2023-03-05] MEDS: GLUCERNA SHAKE 237 ML CAN PO SCH ×2 (08:16→16:38)
[2023-03-05] MEDS: MEMANTINE HCL 5 MG TABLET PO SCH ×2 (08:16→20:33)
[2023-03-05] MEDS: CEphaleXIN 500 MG CAPSULE PO SCH ×2 (08:16→20:32)
[2023-03-05 16:04] VITALS: BP 122/63; TEMP 98; O2SAT 99
[2023-03-05] MEDS: LATANOPROST OPHT DROP 2.5 ML BOTTLE EACHEYE SCH (17:32)
[2023-03-05 20:00] VITALS: BP 112/54; TEMP 98.1; O2SAT 98
[2023-03-05] MEDS: ATORVASTATIN 10 MG TABLET PO SCH (20:32)
[2023-03-05] MEDS: DONEPEZIL 5 MG TABLET PO SCH (20:32)
[2023-03-05] MEDS: QUETIAPINE FUMARATE 25 MG TABLET PO SCH (20:33)
[2023-03-06 07:54] VITALS: BP 122/72; TEMP 98; O2SAT 99
[2023-03-06] MEDS: MEMANTINE HCL 5 MG TABLET PO SCH ×2 (08:18→20:46)
[2023-03-06] MEDS: CEphaleXIN 500 MG CAPSULE PO SCH ×2 (08:18→20:46)
[2023-03-06] MEDS: GLUCERNA SHAKE 237 ML CAN PO SCH ×2 (08:19→17:00)
[2023-03-06 16:12] VITALS: BP 119/70; TEMP 98.1; O2SAT 99
[2023-03-06] MEDS: LATANOPROST OPHT DROP 2.5 ML BOTTLE EACHEYE SCH (17:14)
[2023-03-06 20:00] VITALS: BP 136/69; TEMP 98.2; O2SAT 98
[2023-03-06] MEDS: QUETIAPINE FUMARATE 25 MG TABLET PO SCH (20:46)
[2023-03-06] MEDS: ATORVASTATIN 10 MG TABLET PO SCH (20:46)
[2023-03-06] MEDS: DONEPEZIL 5 MG TABLET PO SCH (21:08)
[2023-03-07 08:11] VITALS: BP 123/67; TEMP 98.1; O2SAT 98
[2023-03-07] MEDS ORDERED: LORAZEPAM 0.5 MG TABLET PO PRN (08:15)
[2023-03-07] MEDS ORDERED: LORAZEPAM 1 MG TABLET PO PRN (08:15)
[2023-03-07] MEDS: MEMANTINE HCL 5 MG TABLET PO SCH ×2 (08:57→20:23)
[2023-03-07] MEDS: CEphaleXIN 500 MG CAPSULE PO SCH ×2 (08:57→20:23)
[2023-03-07] MEDS: GLUCERNA SHAKE 237 ML CAN PO SCH ×2 (08:58→16:58)
[2023-03-07] MEDS: busPIRone 5 MG TABLET PO SCH ×3 (09:13→16:48)
[2023-03-07 16:32] VITALS: BP 96/58; TEMP 98; O2SAT 98
[2023-03-07] MEDS: LATANOPROST OPHT DROP 2.5 ML BOTTLE EACHEYE SCH (17:13)
[2023-03-07 19:52] VITALS: BP 150/81; TEMP 98.1; O2SAT 97
[2023-03-07] MEDS: ATORVASTATIN 10 MG TABLET PO SCH (20:23)
[2023-03-07] MEDS: DONEPEZIL 5 MG TABLET PO SCH (20:23)
[2023-03-08 08:06] VITALS: BP 113/52; TEMP 98.3; O2SAT 96
[2023-03-08] MEDS: MEMANTINE HCL 5 MG TABLET PO SCH (08:15)
[2023-03-08] MEDS: busPIRone 5 MG TABLET PO SCH ×3 (08:15→16:17)
[2023-03-08] MEDS: CEphaleXIN 500 MG CAPSULE PO SCH ×2 (08:15→20:22)
[2023-03-08] MEDS: GLUCERNA SHAKE 237 ML CAN PO SCH (08:16)
[2023-03-08 15:40] VITALS: BP 136/73; TEMP 98.2; O2SAT 99
[2023-03-08] MEDS: LATANOPROST OPHT DROP 2.5 ML BOTTLE EACHEYE SCH (18:00)
[2023-03-08] MEDS: ATORVASTATIN 10 MG TABLET PO SCH (20:22)
[2023-03-08] MEDS: DONEPEZIL 5 MG TABLET PO SCH (20:22)
[2023-03-08] MEDS: MEMANTINE HCL 10 MG TABLET PO SCH (20:23)
[2023-03-08 20:30] VITALS: BP 126/70; TEMP 98.2; O2SAT 98
[2023-03-09 07:56] VITALS: BP 162/90; TEMP 97.8; O2SAT 98
[2023-03-09] MEDS: busPIRone 5 MG TABLET PO SCH ×3 (09:00→16:30)
[2023-03-09] MEDS: MEMANTINE HCL 10 MG TABLET PO SCH ×3 (09:00→20:54)
[2023-03-09 15:48] VITALS: BP 108/73; TEMP 98.2; O2SAT 100
[2023-03-09] MEDS: LATANOPROST OPHT DROP 2.5 ML BOTTLE EACHEYE SCH (18:06)
[2023-03-09 20:21] VITALS: BP 144/66; TEMP 98.1; O2SAT 99
[2023-03-09] MEDS: DONEPEZIL 5 MG TABLET PO SCH ×2 (20:35→20:53)
[2023-03-09] MEDS: ATORVASTATIN 10 MG TABLET PO SCH ×2 (20:35→20:53)
[2023-03-10 07:55] VITALS: BP 108/51; TEMP 98; O2SAT 98
[2023-03-10] MEDS: busPIRone 5 MG TABLET PO SCH ×3 (09:29→16:58)
[2023-03-10] MEDS: MEMANTINE HCL 10 MG TABLET PO SCH ×3 (09:29→21:35)
[2023-03-10 15:38] VITALS: BP 137/81; TEMP 98; O2SAT 98
[2023-03-10] MEDS: LATANOPROST OPHT DROP 2.5 ML BOTTLE EACHEYE SCH (18:09)
[2023-03-10 20:00] VITALS: BP 114/64; TEMP 98; O2SAT 97
[2023-03-10] MEDS: ATORVASTATIN 10 MG TABLET PO SCH ×2 (21:00→21:36)
[2023-03-10] MEDS: DONEPEZIL 5 MG TABLET PO SCH ×2 (21:00→21:35)
[2023-03-11 07:30] VITALS: BP 126/62; TEMP 98; O2SAT 99
[2023-03-11] MEDS: MEMANTINE HCL 10 MG TABLET PO SCH ×2 (08:43→20:12)
[2023-03-11] MEDS: busPIRone 5 MG TABLET PO SCH ×3 (08:43→18:20)
[2023-03-11 15:30] VITALS: BP 126/62; TEMP 98; O2SAT 96
[2023-03-11] MEDS: LATANOPROST OPHT DROP 2.5 ML BOTTLE EACHEYE SCH (18:21)
[2023-03-11 20:00] VITALS: BP 133/73; TEMP 97.9; O2SAT 97
[2023-03-11] MEDS: DONEPEZIL 5 MG TABLET PO SCH (20:12)
[2023-03-11] MEDS: ATORVASTATIN 10 MG TABLET PO SCH (20:12)
[2023-03-12] MEDS: busPIRone 5 MG TABLET PO SCH ×3 (08:18→16:11)
[2023-03-12] MEDS: MEMANTINE HCL 10 MG TABLET PO SCH ×2 (08:18→21:03)
[2023-03-12 08:19] VITALS: BP 147/75; TEMP 98.1; O2SAT 99
[2023-03-12 17:35] VITALS: BP 131/74; TEMP 98; O2SAT 98
[2023-03-12] MEDS: LATANOPROST OPHT DROP 2.5 ML BOTTLE EACHEYE SCH (17:56)
[2023-03-12 20:00] VITALS: BP 115/65; TEMP 98.3; O2SAT 96
[2023-03-12] MEDS: ATORVASTATIN 10 MG TABLET PO SCH (21:03)
[2023-03-12] MEDS: DONEPEZIL 5 MG TABLET PO SCH (21:03)
[2023-03-13 08:00] VITALS: BP 115/60; TEMP 98; O2SAT 98
[2023-03-13] MEDS: busPIRone 5 MG TABLET PO SCH ×3 (08:42→16:32)
[2023-03-13] MEDS: MEMANTINE HCL 10 MG TABLET PO SCH ×2 (08:42→20:59)
[2023-03-13 15:45] VITALS: BP 113/62; TEMP 98; O2SAT 100
[2023-03-13] MEDS: LATANOPROST OPHT DROP 2.5 ML BOTTLE EACHEYE SCH (16:32)
[2023-03-13 20:00] VITALS: BP 122/67; TEMP 98.3
[2023-03-13] MEDS: ATORVASTATIN 10 MG TABLET PO SCH (20:59)
[2023-03-13] MEDS: DONEPEZIL 5 MG TABLET PO SCH (20:59)
[2023-03-14 07:55] VITALS: BP 120/63; TEMP 98; O2SAT 97
[2023-03-14] MEDS: busPIRone 5 MG TABLET PO SCH ×3 (08:34→17:02)
[2023-03-14] MEDS: MEMANTINE HCL 10 MG TABLET PO SCH ×2 (08:34→20:49)
[2023-03-14] MEDS: ENSURE ENLIVE (VAN) 240 ML LIQUID PO SCH (17:02)
[2023-03-14] MEDS: LATANOPROST OPHT DROP 2.5 ML BOTTLE EACHEYE SCH (17:03)
[2023-03-14 17:52] VITALS: BP 122/66; TEMP 98.4; O2SAT 98
[2023-03-14 20:03] VITALS: BP 140/85; TEMP 99.1; O2SAT 100
[2023-03-14] MEDS: DONEPEZIL 5 MG TABLET PO SCH (20:49)
[2023-03-14] MEDS: ATORVASTATIN 10 MG TABLET PO SCH (20:50)
[2023-03-15 08:37] VITALS: BP 109/65; TEMP 97.9; O2SAT 97
[2023-03-15] MEDS: busPIRone 5 MG TABLET PO SCH ×3 (08:39→17:32)
[2023-03-15] MEDS: MEMANTINE HCL 10 MG TABLET PO SCH ×2 (08:40→20:36)
[2023-03-15] MEDS: ENSURE ENLIVE (VAN) 240 ML LIQUID PO SCH ×2 (08:40→17:32)
[2023-03-15 16:30] VITALS: BP 99/52; TEMP 98.8; O2SAT 96
[2023-03-15] MEDS: LATANOPROST OPHT DROP 2.5 ML BOTTLE EACHEYE SCH (17:34)
[2023-03-15 20:00] VITALS: BP 103/59; TEMP 98.8; O2SAT 96
[2023-03-15] MEDS: DONEPEZIL 5 MG TABLET PO SCH (20:36)
[2023-03-15] MEDS: ATORVASTATIN 10 MG TABLET PO SCH (20:36)
[2023-03-16 08:00] VITALS: BP 141/76; TEMP 98.2; O2SAT 97
[2023-03-16] MEDS: MEMANTINE HCL 10 MG TABLET PO SCH (08:42)
[2023-03-16] MEDS: ENSURE ENLIVE (VAN) 240 ML LIQUID PO SCH (08:42)
[2023-03-16] MEDS: busPIRone 5 MG TABLET PO SCH (08:42)
== END 2023-03-16 12:00 | DRG 885 ==
LOC: ER 09:45 → GPS 12:19
PROVIDERS: ADMIT Psychiatry & Neurology Psychiatry; ATTEND Internal Medicine
DX: F39 Unspecified mood [affective] disorder (principal); F01.518 Vascular dementia, unspecified severity, with other behavioral disturbance; D68.59 Other primary thrombophilia; N39.0 Urinary tract infection, site not specified; F01.511 Vascular dementia, unspecified severity, with agitation; E44.1 Mild protein-calorie malnutrition; Z68.1 Body mass index [BMI] 19.9 or less, adult; Z74.09 Other reduced mobility; I25.5 Ischemic cardiomyopathy; K21.9 Gastro-esophageal reflux disease without esophagitis; Z86.16 Personal history of COVID-19; I69.319 Unspecified symptoms and signs involving cognitive functions following cerebral infarction; Z66 Do not resuscitate; R13.10 Dysphagia, unspecified; I25.2 Old myocardial infarction; E78.5 Hyperlipidemia, unspecified; N13.9 Obstructive and reflux uropathy, unspecified; Z86.79 Personal history of other diseases of the circulatory system; Z91.199 Patient's noncompliance with other medical treatment and regimen due to unspecified reason; Z79.899 Other long term (current) drug therapy; H40.9 Unspecified glaucoma; I25.10 Atherosclerotic heart disease of native coronary artery without angina pectoris; F20.9 Schizophrenia, unspecified
CPT/HCPCS: 36415; 84443; 85025; 93005; G0480